=== PATIENT | female | born 1960 | race Hispanic/Latino ===

== ENCOUNTER 2017-07-05 07:16 | Outpatient (CLI) | payer BC ==
[2017-07-05] MEDS ORDERED: Morphine 2 MG/ML SYRINGE ONE (09:51)
--- NOTE | 2017-07-05 12:15 | NM ---
HEPATOBILIARY SCAN: Date: 07/05/17 HISTORY: Generalized abdominal pain. RADIOPHARMACEUTICAL: 5.2 mCi technetium-99m mebrofenin injected intravenously. FINDINGS: There is good tracer extraction by the liver with prompt excretion into the biliary tract and small bowel loops. There is no filling of the gallbladder at 1 hour. 2 mg of IV morphine administered and additional imaging performed for 30 minutes. There is filling of the gallbladder on post morphine au gmentation images. IMPRESSION: Findings are consistent with chronic cholecystitis. POS: [facility]
== END 2017-07-05 07:17 | disposition home or self-care (01) ==
LOC: NM 07:16
PROVIDERS: ATTEND Internal Medicine
DX: R10.84 Generalized abdominal pain (principal); R19.7 Diarrhea, unspecified; K81.1 Chronic cholecystitis
CPT/HCPCS: 78227; A9537; J2270

== ENCOUNTER 2017-07-09 10:01 | Outpatient (CLI) | payer BC ==
[2017-07-09 14:04] LABS: #Basophils 0.1 thou/uL (0.0-0.2); #Eosinphils 0.1 thou/uL (0.0-0.7); #Lymphocytes 2.4 thou/uL (1.20-3.40); #Monocytes 0.4 thou/uL (0.11-0.59); #Neutrophils 4.9 thou/uL (1.40-6.50); %Basophils 0.8 % (0.0-1.0); %Lymphocytes 30.4 % (21.0-51.0); %Monocytes 5.3 % (0.0-10.0); Mean Platelet Volume 9.5 fL (7.4-10.4); Red Blood Cell (RBC) Count 4.46 mill/uL (4.20-5.40); White Blood Cell (WBC) Count 7.8 thou/uL (4.8-10.8)
[2017-07-09 14:37] LABS: ALT (SGPT) 16 U/L (8-55); AST (SGOT) 15 U/L (5-34); Alkaline Phosphatase 80 U/L (40-150); Anion Gap 14 mmol/L (10-20); BUN (Urea Nitrogen) 16 mg/dL (9.8-20.1); Bilirubin, Direct 0.1 mg/dL (0.1-0.3); Bilirubin, Total 0.3 mg/dL (0.2-1.2); Calc. Creatinine Clearance 0 mL/min (70-130); Calcium 9.5 mg/dL (7.8-10.44); Carbon Dioxide 23 mmol/L (22-29); Chloride 109 mmol/L (98-107); Estimated GFR-MDRD 85; Globulin 3.3 g/dL (2.4-3.5); Protein, Total 7.4 g/dL (6.0-8.3)
== END 2017-07-09 10:02 | disposition home or self-care (01) ==
LOC: LABBT 10:01
PROVIDERS: ATTEND Surgery
DX: Z01.818 Encounter for other preprocedural examination (principal); K81.1 Chronic cholecystitis
CPT/HCPCS: 80053; 80076; 85025; 93005; 93010

== ENCOUNTER 2017-07-11 05:59 | Day surgery (SDC) | payer BC ==
[2017-07-09 10:14] VITALS: BMI 30.4
[2017-07-11] MEDS ORDERED: cefOXitin 2 GM, Syringe 1 ML in Sterile Water 10 ML SLOW IVP SCH (06:15)
[2017-07-11] MEDS ORDERED: cefOXitin 2 GM in Sodium Chloride 0.9% 100 ML SLOW IVP SCH (06:30)
[2017-07-11] MEDS ORDERED: Bupivacaine 0.25% HCL 30 ML VIAL ONE (06:31)
[2017-07-11] MEDS ORDERED: Fentanyl 100 MCG/2 ML VIAL ONE (07:15)
[2017-07-11] MEDS ORDERED: Midazolam HCl 2 mg/2 ml Vial ONE ×2 (07:15→07:27)
[2017-07-11] MEDS ORDERED: Ketorolac Tromethamine 30 MG/ML VIAL ONE (07:45)
[2017-07-11] MEDS ORDERED: Ondansetron HCl/PF 4 MG/2 ML Vial ONE (07:45)
[2017-07-11] MEDS ORDERED: Propofol 200 MG/20 ML VIAL ONE (07:45)
[2017-07-11] MEDS ORDERED: Lidocaine 1% PF 5 ML VIAL ONE (07:45)
[2017-07-11] MEDS ORDERED: Dexamethasone 20 MG/5 ML VIAL ONE (07:45)
[2017-07-11] MEDS ORDERED: Glycopyrrolate 0.2 MG/ML 5 ML SYRINGE ONE ×2 (07:45)
--- NOTE | 2017-07-11 08:52 | OP ---
PREOPERATIVE DIAGNOSIS: Chronic cholecystitis. SURGEON: Yoshi Taylor M.D. PROCEDURE PERFORMED: Laparoscopic cholecystectomy. INDICATIONS: This is a 57-year-old female who has been having episodic right upper quadrant pain ra diating to the back associated with nausea. Ultrasound negative. HIDA scan showed low ejection fra ction. FINDINGS: Small caliber cystic duct. DESCRIPTION OF THE PROCEDURE: After informed consent was obtained, the patient was taken to the ope rating room and given general endotracheal anesthesia, placed in the supine position. Abdomen was p repped and draped in the usual fashion. Local anesthesia infiltrated subcutaneously and deep and a subumbilical incision was performed. Subcu divided sharply. The fascia grasped and two stay suture s of 0 Vicryl placed to either side of midline. Midline incised. Digital palpation revealed no loc al adhesions. A blunt 10-12 mm trocar inserted. Pneumoperitoneum was created to a pressure of 15 m mHg. A 0 degree laparoscope inserted under direct vision, three 5 mm ports placed subcostally. The gallbladder grasped and advanced superiorly. The peritoneum lysed distally to dissect out the cyst ic duct and artery in critical view. These were triply ligated with Hemoclips and divided. The gal lbladder was removed from its fossa utilizing electrocautery, removed from the abdomen through the u mbilical port. Hemostasis was assured. Trocars and retractors removed. The fascia closed with int errupted 0 Vicryl suture. The skin closed with interrupted 4-0 Rapide. Dermabond applied. The pat ient tolerated the procedure well and transferred to recovery in good condition. Sponge and needle count verified correct x2.
[2017-07-11] MEDS ORDERED: Meperidine HCl/PF 25 MG/ML VIAL ONE (10:12)
== END 2017-07-11 10:47 | disposition home or self-care (01) ==
LOC: SDC 05:59
PROVIDERS: ATTEND Surgery
PROC: 0FT44ZZ Resection of Gallbladder, Percutaneous Endoscopic Approach (ICD-10-PCS; principal; 2017-07-11)
DX: K80.10 Calculus of gallbladder with chronic cholecystitis without obstruction (principal); Z79.899 Other long term (current) drug therapy; Z90.710 Acquired absence of both cervix and uterus; Z98.890 Other specified postprocedural states
CPT/HCPCS: 88304; 96374; A4216; J0131; J0694; J1100; J1170; J1885; J2001; J2175; J2250; J2405; J2704; J3010; J7050; S0020

== ENCOUNTER 2020-06-07 18:00 | Outpatient (CLI) | payer BC | END 2020-06-07 18:01 | disposition home or self-care (01) | LOC: SLEEPLAB 18:00 | PROVIDERS: ATTEND Otolaryngology Plastic Surgery within the Head & Neck | DX: G47.9 Sleep disorder, unspecified (principal); R06.83 Snoring | CPT/HCPCS: 95806 ==